=== PATIENT | male | born 1985 | race African-American/Black ===

== ENCOUNTER → 2025-08-10 | Emergency (ER) | payer MEDICAID ==
[~2025-08-10] VITALS: Ht 172.7 cm; Wt 81.8 kg
[~2025-08-10] MED LIST: CLON0.2T PO
[2025-08-10 13:16] VITALS: BP 167/102; PULSE 96; RESP 18; TEMP 98.2; O2SAT 99
[2025-08-10] MEDS: IBUPROFEN 600 MG TABLET PO ONE (14:45)
== END | disposition still patient (30) ==
LOC: EMS 13:16
DX: S63.502A Unspecified sprain of left wrist, initial encounter (principal); I10 Essential (primary) hypertension; F12.90 Cannabis use, unspecified, uncomplicated; F17.210 Nicotine dependence, cigarettes, uncomplicated; Z79.899 Other long term (current) drug therapy; W19.XXXA Unspecified fall, initial encounter; Y93.89 Activity, other specified; Y92.89 Other specified places as the place of occurrence of the external cause; Y99.8 Other external cause status
CPT/HCPCS: 99283